=== PATIENT | female | born 1960 | race Caucasian/White ===

== ENCOUNTER 2016-12-07 11:49 | Emergency (ER) | payer MEDICARE, MEDICAID ==
[2016-12-07 12:29] LABS: % BASOPHILS 0.1 % (0.0-2.0); % LYMPHOCYTES 22.1 % (20.0-50.0); % MONOCYTES 4.6 % (2.0-10.0); % NEUTROPHILS 70.2 % (40.0-80.0); HEMATOCRIT 38.5 % (35.0-45.0); HEMOGLOBIN 12.8 gm/dL (11.7-15.5); MEAN CELL VOLUME 84.5 fl (81-100); MEAN CORPUSCULAR HEMOGLOBIN 28.2 pg (27.0-31.0); MEAN CORPUSCULAR HGB CONC 33.4 pg (28.0-36.0); MEAN PLATELET VOLUME 8.4 fl; PLATELET COUNT 216 Th/cmm (150-400); RED BLOOD COUNT 4.55 Mil/cmm (3.80-5.10); RED CELL DISTRIBUTION WIDTH 13.5 % (11.5-20.0); WHITE BLOOD COUNT 8.6 Th/cmm (4.8-10.8)
[2016-12-07 12:50] LABS: INR 0.95 (0.5-1.4); PROTHROMBIN TIME (TEST) 9.9 SECONDS (9.5-11.5)
[2016-12-07 12:53] LABS: ACETAMINOPHEN < 10.0 ug/mL (10.0-30.0); ALB/GLOB RATIO 1.2 (1.0-1.8); ALKALINE PHOSPHATASE 86 U/L (34-104); ANION GAP 5.9 (7.0-16.0); BILIRUBIN,TOTAL 0.3 mg/dL (0.3-1.0); BUN - UREA NITROGEN 13 mg/dL (7-25); BUN/CREATININE RATIO 16.3; CALCIUM SERUM 9.2 mg/dL (8.6-10.3); CARBON DIOXIDE 26.1 mEq/L (21.0-31.0); CHLORIDE 107 mEq/L (98-107); CHOLESTEROL 177 mg/dL (<200); CREATININE - SERUM 0.8 mg/dL (0.6-1.2); GLUCOSE 152 mg/dL (70-105); SGOT 24 U/L (13-39); SGPT/ALT 30 U/L (7-52); SODIUM SERUM 135 mEq/L (136-145); TRIGLYCERIDES 296 mg/dL (<150)
--- NOTE | 2016-12-07 13:18 | ED Physician Chart ---
Chief Complaint/HPI - Patient Information Date Seen:: 12/07/16 Time Seen:: 12:10 Chief Complaint:: suicidal History of Present Illness:: this is a 56 yo female psych patient who states the she wants to kill herself. she is a psych patient and has been here in the past. she very combative throwing a gown at the nurse. Allergies:: Allergies Allergy/AdvReac Type Severity Reaction Status Date / Time No Known Allergies Allergy Verified 12/07/16 11:58 Vitals:: Vital Signs - 8 hr 12/07/16 12:05 Temp 97.6 F HR 78 RR 17 BP 141/63 O2 Sat % 96 Historian:: Patient Review:: Nurse's Note Reviewed Review of Systems - Review of Systems General/Constitutional: No fever, No chills, No weight loss, No weakness, No diaphoresis, No edema, No loss of appetite Skin: No skin lesions, No rash, No bruising Head: No headache, No light-headedness Eyes: No loss of vision, No pain, No diplopia ENT: No earache, No nasal drainage, No sore throat, No tinnitus Neck: No neck pain, No swelling, No thyromegaly, No stiffness, No mass noted Cardio Vascular: No chest pain, No palpitations, No PND, No orthopnea, No edema Pulmonary: No SOB, No cough, No sputum, No wheezing GI: No nausea, No vomiting, No diarrhea, No pain, No melena, No hematochezia, No constipation, No hematemesis G/U: No dysuria, No frequency, No hematuria Musculoskeletal: No bone or joint pain, No back pain, No muscle pain Endocrine: No polyuria, No polydipsia Psychiatric: Prior psych history, No depression, No anxiety, Suicidal ideation Hematopoietic: No bruising, No lymphadenopathy Allergic/Immuno: No urticaria, No angioedema Neurological: No syncope, No focal symptoms, No weakness, No paresthesia, No headache, No seizure, No dizziness, No confusion, No vertigo Past Medical History - Past Medical History Obtainable: Yes Past Medical History: HTN, Thyroid disorder, Other (OBESE) Family History: None Social History: Non Smoker, No Alcohol, No Drug Use, Single Surgical History: None Psychiatricy History: Depression Medication: Reviewed Family Medical History - Family Member Father History Unknown: Yes Ethnicity: Living Status: Still Living Hx Family Hypertension: Yes Physical Exam - Physical Examination General/Constitutional: Awake, Well-developed, well-nourished, Alert, No distress, GCS 15, Non-toxic appearing, Ambulatory Other Gen/Cons comments:: OBESE Head: Atraumatic Eyes: Lids, conjuctiva normal, PERRL, EOMI Skin: Nl inspection, No rash, No skin lesions, No ecchymosis, Well hydrated, No lymphadenopathy ENMT: External ears, nose nl, Nasal exam nl, Lips, teeth, gums nl Neck: Nontender, Full ROM w/o pain, No JVD, No nuchal rigidity, No bruit, No mass, No stridor Respiratory: Nl effort/Exclusion, Clear to Auscultation, No Wheeze/Rhonchi/Rales Cardio Vascular: RRR, No murmur, gallop, rubs, NL S1 S2 GI: No tenderness/rebounding/guarding, No organomegaly, No hernia, Normal BS's, Nondistended, No mass/bruits, No McBurney tenderness : No CVA tenderness Extremities: No tenderness or effusion, Full ROM, normal strength in all extremities, No edema, Normal digits & nails Neuro/Psych: Alert/oriented, DTR's symmetric, Normal sensory exam, Normal motor strength, Judgement/insight normal, Mood normal (DEPRESSED), Normal gait, No focal deficits Misc: normal gait, Normal back, No paraspinal tenderness Labs/Radiology/EKG Results - Lab Results Results: Laboratory Tests 12/07/16 12/07/16 12/07/16 12:14 12:14 12:14 WBC 8.6 RBC 4.55 Hgb 12.8 Hct 38.5 MCV 84.5 MCH 28.2 MCHC Differential 33.4 RDW 13.5 Plt Count 216 MPV 8.4 Neutrophils % 70.2 Lymphocytes % 22.1 Monocytes % 4.6 Eosinophils % 3.0 Basophils % 0.1 PT 9.9 INR 0.95 PTT (Actin FS) 28.0 Sodium 135 L Potassium 4.0 Chloride 107 Carbon Dioxide 26.1 Anion Gap 5.9 L BUN 13 Creatinine 0.8 Est GFR ( Amer) > 60.0 Est GFR (Non-Af Amer) > 60.0 BUN/Creatinine Ratio 16.3 Glucose 152 H Calcium 9.2 Total Bilirubin 0.3 AST 24 ALT 30 Alkaline Phosphatase 86 Troponin I Total Protein 6.8 Albumin 3.7 Globulin 3.1 Albumin/Globulin Ratio 1.2 Triglycerides 296 H Cholesterol 177 LDL Cholesterol Direct 115 HDL Cholesterol 37 Salicylates < 25.0 L Acetaminophen < 10.0 L Ethyl Alcohol < 10 12/07/16 12:14 WBC RBC Hgb Hct MCV MCH MCHC Differential RDW Plt Count MPV Neutrophils % Lymphocytes % Monocytes % Eosinophils % Basophils % PT INR PTT (Actin FS) Sodium Potassium Chloride Carbon Dioxide Anion Gap BUN Creatinine Est GFR ( Amer) Est GFR (Non-Af Amer) BUN/Creatinine Ratio Glucose Calcium Total Bilirubin AST ALT Alkaline Phosphatase Troponin I 0.01 Total Protein Albumin Globulin Albumin/Globulin Ratio Triglycerides Cholesterol LDL Cholesterol Direct HDL Cholesterol Salicylates Acetaminophen Ethyl Alcohol ED Septic Shock - . Is Septic Shock (SBP<90, OR Lactate>4 mmol\L) present?: No - <6hrs of presentation: Vital Signs: Vital Signs - 8 hr 12/07/16 12:05 Temp 97.6 F HR 78 RR 17 BP 141/63 O2 Sat % 96 Reassessment (Disposition) - Reassessment Reassessment:: THE PSYCH EVALUATION WAS DONE BY JESSICA YEUNG THE PATIENT CAN BE TREATED FOR SUICIDE BUT HAS TO BE TRANSFERED A HOLD. Reassessment Condition:: Unchanged - Diagnosis Diagnosis:: SUICIDAL OBESITY - Aftercare/Follow up Instructions Notes:: THE PATIENT WILL PLACED ON SYNTHYROID FOR HER ELEVATED TSH. Medication Prescribed:: THIS PATIENT IS CLEARED FOR PSYCH EVALUATION. SHE WAS EVALUATED BY OUR PSYCH INTAKE NURSE AND NOW IN PLACE FOR A PSYCH ADMISSION. ED Discharge Plan - Patient Disposition Condition at Disposition: Improved Additional Instructions: DR. RAMIREZ WILL BE CARING FOR THE PATIENT STARTING AT 0700HRS SHE AWAITS PLACEMENT IN A PSYCH FACILLITY.
--- NOTE | 2016-12-09 12:36 | Consultation ---
DATE OF CONSULTATION: 12/09/2016 PHYSICIAN REQUESTING CONSULTATION: ____. HISTORY OF PRESENT ILLNESS: The patient is seen here on a 5150 for suicidal ideation. HISTORY OF PRESENT ILLNESS: This patient is a 56-year-old woman living with her family. Information obtained by interviewing the patient as well as reviewing the admission papers. The patient has been brought over here for evaluation by the patient's father because the patient has been stating that she has been hearing voices that are telling her to end her life and patient wanted to kill herself. The patient has been evaluated by the staff from the [facility] and has been placed on 5150 as a danger to self. I tried to interview the patient this morning. The patient is noted to be very evasive, guarded and has been ____ to having thoughts and is not providing much of information. The patient is stating that she has been seeing Dr. Tk Evans outside and has not been taking the medications for a long time. The patient is stating that she cannot recall the medications that she was taking. PAST PSYCHIATRIC HISTORY: Reports being hospitalized at [facility] and has seen before, but she cannot recall the times or dates. MEDICAL HISTORY: Denies medical problems. ALLERGIES: No allergies noted. SUBSTANCE ABUSE HISTORY: The patient denies use of any drugs or alcohol. MENTAL EXAMINATION: The patient is a 56-year-old, looking her stated age, moderately obese, superficially cooperative. Eye contact is fair. Mood is irritable. Affect is constricted. The patient is very guarded, suspicious and is very paranoid. The patient is endorsing to auditory hallucinations that are telling her to end her life. The patient is not able to contract for safety. The patient is alert and oriented x 3. Short and long terms are noted to be intact. DIAGNOSTIC IMPRESSION: AXIS I: Major depressive disorder, recurrent with psychotic symptoms, rule out schizoaffective disorder. AXIS II: None. AXIS III: Obesity. PLAN: The patient is going to be transferred to the psychiatric unit, but is covered with the treatment. JOB# [id number]
[2016-12-10] MEDS ORDERED: Acetaminophen 500 MG TAB ONE (16:37)
[2016-12-23] MEDS ORDERED: NITROGLYCERIN OINT 2% 1 INCH PACKET TP ONE (18:11)
== END 2016-12-10 13:35 | disposition home or self-care (01) ==
LOC: ER 11:49
DX: R45.851 Suicidal ideations (principal); E66.9 Obesity, unspecified; I10 Essential (primary) hypertension; E07.9 Disorder of thyroid, unspecified
CPT/HCPCS: 36415-UA; 80053-TC; 80061-TC; 80320-TC; 80329-TC; 84443-TC; 84484-TC; 85025-TC; 85610-TC; 85730-TC; 86592-TC; Z7502; Z7610

== ENCOUNTER 2017-01-31 11:29 | Emergency (ER) | payer MEDICARE, MEDICAID ==
[2017-01-31 12:16] LABS: % BASOPHILS 0.5 % (0.0-2.0); % LYMPHOCYTES 19.4 % (20.0-50.0); % MONOCYTES 5.4 % (2.0-10.0); % NEUTROPHILS 72.7 % (40.0-80.0); HEMATOCRIT 40.8 % (35.0-45.0); HEMOGLOBIN 13.4 gm/dL (11.7-15.5); MEAN CELL VOLUME 86.3 fl (81-100); MEAN CORPUSCULAR HEMOGLOBIN 28.3 pg (27.0-31.0); MEAN CORPUSCULAR HGB CONC 32.8 pg (28.0-36.0); MEAN PLATELET VOLUME 8.2 fl; PLATELET COUNT 220 Th/cmm (150-400); RED BLOOD COUNT 4.73 Mil/cmm (3.80-5.10); RED CELL DISTRIBUTION WIDTH 13.4 % (11.5-20.0); WHITE BLOOD COUNT 9.5 Th/cmm (4.8-10.8)
[2017-01-31 12:24] LABS: URINE COLOR YELLOW
[2017-01-31 12:25] LABS: URINE BILIRUBIN NEGATIVE (NEGATIVE); URINE BLOOD TRACE (NEGATIVE); URINE GLUCOSE (UA) NEGATIVE (NEGATIVE); URINE KETONE NEGATIVE (NEGATIVE); URINE PROTEIN NEGATIVE (NEGATIVE); URINE UROBILINOGEN 0.2 E.U./dL (0.2 - 1.0)
[2017-01-31 12:27] LABS: URINE BACTERIA OCCASIONAL /hpf (NONE SEEN); URINE EPITHELIAL CELLS FEW /lpf (FEW); URINE RBC 0-2 /hpf (0-5); URINE WBC NONE SEEN /hpf (0-5)
[2017-01-31 12:57] LABS: ALB/GLOB RATIO 1.2 (1.0-1.8); ALKALINE PHOSPHATASE 77 U/L (34-104); ANION GAP 7.4 (7.0-16.0); BILIRUBIN,TOTAL 0.3 mg/dL (0.3-1.0); BUN - UREA NITROGEN 15 mg/dL (7-25); BUN/CREATININE RATIO 18.8; CALCIUM SERUM 9.3 mg/dL (8.6-10.3); CARBON DIOXIDE 25.8 mEq/L (21.0-31.0); CHLORIDE 105 mEq/L (98-107); CREATININE - SERUM 0.8 mg/dL (0.6-1.2); GLUCOSE 100 mg/dL (70-105); POTASSIUM SERUM 4.2 mEq/L (3.5-5.1); SGOT 20 U/L (13-39); SGPT/ALT 26 U/L (7-52); SODIUM SERUM 134 mEq/L (136-145)
--- NOTE | 2017-01-31 13:17 | ED Physician Chart ---
Chief Complaint/HPI - Patient Information Date Seen:: 01/31/17 Time Seen:: 13:00 Chief Complaint:: auditory hallucinations History of Present Illness:: Patient has been hearing voices for about 6 months. She cannot remember what the voices are telling her. She denies the desire to hurt herself or anyone else. Allergies:: Allergies Allergy/AdvReac Type Severity Reaction Status Date / Time No Known Allergies Allergy Verified 12/07/16 11:58 Vitals:: Vital Signs - 8 hr 01/31/17 11:59 Temp 97.9 F HR 66 RR 16 BP 128/106 O2 Sat % 96 Historian:: Patient Review:: Nurse's Note Reviewed Review of Systems - Review of Systems General/Constitutional: No fever, No chills Skin: No skin lesions Head: No headache Eyes: No loss of vision ENT: No earache Neck: No neck pain Cardio Vascular: No chest pain, No palpitations Pulmonary: No SOB GI: No nausea, No vomiting G/U: No dysuria, No hematuria Musculoskeletal: No bone or joint pain, No back pain, No muscle pain Endocrine: No polyuria Psychiatric: Prior psych history Hematopoietic: No bruising, No lymphadenopathy Allergic/Immuno: No urticaria, No angioedema Neurological: No syncope, No focal symptoms, No headache Past Medical History - Past Medical History Past Medical History: No significant medical hx Family History: Diabetes Melitus Social History: Non Smoker, Alcohol, Other (occasional alcohol use) Surgical History: None Psychiatricy History: Schizophrenia Medication: Reviewed Family Medical History - Family Member Father History Unknown: Yes Ethnicity: Living Status: Still Living Hx Family Hypertension: Yes Physical Exam - Physical Examination General/Constitutional: Well-developed, well-nourished, Alert, No distress Head: Atraumatic Eyes: Lids, conjuctiva normal, PERRL Skin: No skin lesions, No ecchymosis ENMT: External ears, nose nl, Nasal exam nl Other ENMT comments:: 3 out of 4 periodontal disease and gum retraction Neck: No nuchal rigidity Respiratory: Nl effort/Exclusion, Clear to Auscultation, No Wheeze/Rhonchi/Rales Cardio Vascular: RRR, No murmur, gallop, rubs, NL S1 S2 GI: No tenderness/rebounding/guarding, No organomegaly, Nondistended, No mass/ bruits : No CVA tenderness Other Extremities comments:: 1.5 out of 4 pretibial pitting edema Neuro/Psych: No focal deficits Labs/Radiology/EKG Results - Lab Results Results: Laboratory Tests 01/31/17 01/31/17 01/31/17 11:56 12:15 12:25 WBC 9.5 RBC 4.73 Hgb 13.4 Hct 40.8 MCV 86.3 MCH 28.3 MCHC Differential 32.8 RDW 13.4 Plt Count 220 MPV 8.2 Neutrophils % 72.7 Lymphocytes % 19.4 L Monocytes % 5.4 Eosinophils % 2.0 Basophils % 0.5 Sodium 134 L Potassium 4.2 Chloride 105 Carbon Dioxide 25.8 Anion Gap 7.4 BUN 15 Creatinine 0.8 Est GFR ( Amer) > 60.0 Est GFR (Non-Af Amer) > 60.0 BUN/Creatinine Ratio 18.8 Glucose 100 Calcium 9.3 Total Bilirubin 0.3 AST 20 ALT 26 Alkaline Phosphatase 77 Total Protein 6.9 Albumin 3.8 Globulin 3.1 Albumin/Globulin Ratio 1.2 Urine Source CLEAN C Urine Color YELLOW Urine Clarity SL. CLOUDY Urine pH 6.0 Ur Specific Conrad 1.025 Urine Protein NEGATIVE Urine Glucose (UA) NEGATIVE Urine Ketones NEGATIVE Urine Blood TRACE Urine Nitrate NEGATIVE Urine Bilirubin NEGATIVE Urine Urobilinogen 0.2 Ur Leukocyte Esterase NEGATIVE Urine RBC 0-2 Urine WBC NONE SEEN Ur Epithelial Cells FEW Urine Bacteria OCCASIONAL Assessment - Assessment General Assessment: After Lorenzo consulted her psychiatrist and told her she was being discharged she said she had the desire to hurt herself or kill herself by walking out in front of traffic. Lorenzo then put the patient on a psychiatric hold. ED Septic Shock - . Is Septic Shock (SBP<90, OR Lactate>4 mmol\L) present?: No - <6hrs of presentation: Vital Signs: Vital Signs - 8 hr 01/31/17 11:59 Temp 97.9 F HR 66 RR 16 BP 128/106 O2 Sat % 96 Reassessment (Disposition) - Reassessment Reassessment:: 02/01/[address] Evans here and discharged the patient. - Diagnosis Diagnosis:: Auditory hallucinations; schizophrenia; suicidal ideation; medically stable - Aftercare/Follow up Instructions Aftercare/Follow-Up Instructions:: Refer to Discharge Instructions - Patient Disposition Discharge/Transfer:: Home Condition at Disposition:: Stable ED Discharge Plan - Patient Disposition Instructions: Schizophrenia Additional Instructions: CALL THE OFFICE OF DR. DASILVA TO FIND OUT WHAT TIME YOU WILL SEE HIM ON Saturday02/06/17. CONTINUE TAKING ALL OF YOUR HOME MEDICATIONS PRESCRIBED.
--- NOTE | 2017-02-01 04:09 | Admit Criteria Form ---
Admit Criteria Forms - Admit Criteria Diagnosis: PSYCHIATRIC DISORDERS (Place 'X' for any and all applicable criteria): Ongoing inpatient care may be needed for 1 or more of the following(1)(2)(3)(4)( 6)(7)(8): [ ]I. Danger to self or others not manageable at lower level of care. [ ]II. Grave disability (eg, inability to perform self care necessary at lower level of care) [ ]III. Agitation or inappropriate behavior interfering with care for primary condition (eg, attempting to discontinue lines or drains prematurely, unable to cooperate with respiratory care) [X]IV. Severe disability or disorder indicated by ALL of the following: [X]a) Severe behavioral health disorder-related symptoms or condition indicated by 1 or more of the following: [ ]i) Severe problem with cognition, memory, judgment, or impulse control [X]ii) Severe clinical manifestations (eg, hallucinations, delusions, other acute psychotic symptoms, stephanie, extreme agitation or anxiety) [X]b) Patient management at lower level of care is not feasible until acute intervention or modification is initiated. Extended stay beyond goal length of stay for the primary condition may be needed until ALLof the following are present(1)(2)(3)(4)(7)64)(23): [ ]a) Danger to self or others is absent or manageable at lower level of care [ ]b) Behavior crisis management, including physical or chemical restraints, is required and is not available at a lower level of care. [ ]c) Behavioral symptoms (e.g., agitation, somnolence, inappropriate behavior) are present, and are not manageable at a lower level of care. [ ]d) Patient cannot understand follow-up treatment and crisis plan. [ ]e) Provider and supports are sufficiently available at lower level of care. [ ]f) Patient can participate (e.g., verify absence of plan for harm) and is in needed of monitoring. The original [facility] content created by [facility] has been revised. The portions of the content which have been revised are identified through the use of italic text or in bold, and [facility] has neither reviewed nor approved the modified material. All other unmodified content is copyright [facility]. Please see references footnoted in the original [facility] edition 2017 Admit Criteria Met?: Yes
== END 2017-02-01 06:39 | disposition home or self-care (01) ==
LOC: ER 11:29
DX: R44.0 Auditory hallucinations (principal); F20.9 Schizophrenia, unspecified; R45.851 Suicidal ideations
CPT/HCPCS: 36415-UA; 80053-TC; 81001-TC; 84443-TC; 85025-TC; 86592-TC; 93005